=== PATIENT | male | born 1980 | race Caucasian/White ===

== ENCOUNTER → 2019-11-04 | Outpatient (CLI) | payer BC ==
--- NOTE | 2019-11-04 09:33 | Diagnostic Imaging Report ---
INDICATION: Pain COMPARISON: None available TECHNIQUE: Two radiographs of the thoracic spine dated 11/04/2019. FINDINGS: A metallic BB is noted just to the right of the spine overlying the right upper lung. Alignment of the thoracic spine is grossly unremarkable, though the cervicothoracic junction is not well seen secondary to overlying structures. Within the limits of the examination, vertebral body heights are well-maintained. No severe disc space height loss. No acute fracture. No large volume pleural effusion. IMPRESSION: No acute osseous abnormality within the limits of the examination. Metallic BB overlying the right upper lung, of uncertain chronicity. Recommend clinical correlation. Dictated by: Dictated on workstation # [id number]
== END ==
LOC: RAD FS 09:14
PROVIDERS: ATTEND Nurse Practitioner
DX: M54.6 Pain in thoracic spine (principal); Z18.10 Retained metal fragments, unspecified
CPT/HCPCS: 72070

== ENCOUNTER 2020-01-30 07:32 | Emergency (ER) | payer BC ==
[~2020-01-30] VITALS: Ht 185 cm; Wt 88.0 kg
--- NOTE | 2020-01-30 07:59 | ED Upper Extremity ---
General Chief Complaint: Skin/Wound Problems Stated Complaint: LT HAND INFECTION Nursing Triage Note: PT REPORTS HE HIT HIS HAND ABOUT A MONTH AGO AND CUT IT. HE HAD SOME SWELLING AT THE TIME BUT IT WENT AWAY. HE HIT IT AGAIN THIS WEEEKEND AND NOW HAS REDNESS, SWELLING, AND WARMTH TO THE LEFT HAND. HE REPORTS A HX OF STAPH INFECTION. Nursing Sepsis Screen: No Definite Risk Source: patient Exam Limitations: no limitations History of Present Illness Date Seen by Provider: Jan 30, 2020 Time Seen by Provider: 07:45 Initial Comments The patient is a 39-year-old male presents for evaluation of pain, redness, and swelling to the left hand. He states that he injured himself with a saw about a month ago causing a small laceration to the left third proximal knuckle on the dorsal aspect. He says he had some swelling at that time but that it went away over the next few days. This weekend he was helping a friend and had some trauma to the area again. He went to sleep Thursday night with some discomfort and redness and woke up Thursday morning with a significantly swollen left hand, worsening redness, and worsening pain. He states that he has a history of staph infection. He denies fevers or chills, dizziness, nausea or vomiting, or any other complaints at this time. He is alert and oriented 4, calm, and appears to be in no distress. Onset: other (1 month ago, aggravated 2 days ago) Severity: moderate Pain/Injury Location: bilateral shoulder, bilateral arm, bilateral elbow, bilateral forearm; left wrist, left hand Method of Injury: direct blow, incised Modifying Factors: Improves With Movement (makes it worse) Allergies and Home Medications Allergies Coded Allergies: fentanyl (Verified Allergy, Severe, 01/30/20) Patient Home Medication List Home Medication List Reviewed: Yes Review of Systems Constitutional: no symptoms reported EENTM: no symptoms reported Respiratory: no symptoms reported Cardiovascular: no symptoms reported Gastrointestinal: no symptoms reported Genitourinary: no symptoms reported Musculoskeletal: no symptoms reported Skin: other (left hand redness) Past Sblyqbu-Gtgvuo-Dczqvs Hx Patient Social History Alcohol Use: Regular Use Recreational Drug Use: No Smoking Status: Current Everyday Smoker Type Used: Cigarettes 2nd Hand Smoke Exposure: Yes Recent Foreign Travel: No Contact w/Someone Who Travel: No Recent Infectious Disease Expo: No Recent Hopitalizations: No Physical Abuse: No Sexual Abuse: No Mistreated: No Fear: No Seasonal Allergies Seasonal Allergies: Yes Past Medical History Surgeries: Yes (left femur sx and rt heel sx.) Orthopedic Respiratory: Yes Asthma Cardiac: No Neurological: No Genitourinary: No Gastrointestinal: No Musculoskeletal: No Endocrine: No HEENT: No Cancer: No Psychosocial: No Blood Disorders: No Physical Exam Vital Signs Vital Signs - First Documented 01/30/20 07:46 Temp 36.4 Pulse 81 Resp 18 B/P (MAP) 178/110 (132) Pulse Ox 99 O2 Delivery Room Air Capillary Refill : Less Than 3 Seconds Height, Weight, BMI Height: '" Weight: lbs. oz. kg; 25.00 BMI Method: General Appearance: WD/WN, no apparent distress HEENT: PERRL/EOMI, TMs normal, pharynx normal Neck: non-tender, full range of motion Cardiovascular: regular rate, rhythm, no edema, no JVD Shoulder: normal inspection, non-tender, no evidence of injury Elbow/Forearm: normal inspection, non-tender, no evidence of injury Hand: Right (normal exam), Left (Left hand with moderate swelling, soft compartments, healed wound over dorsal left third MCP joint, no fluctuance, no drainage, FROM of all fingers/hand/wrist, CMS intact distally, ), infection, limited ROM (slightly limited flexion/extension of left wrist), soft tissue tenderness, swelling Neurologic/Tendon: normal sensation, normal motor functions, normal tendon functions, responds to pain, no evidence tendon injury Neurologic/Psychiatric: geriatric physical therapist II-XII nml as tested, no motor/sensory deficits, alert, normal mood/affect, oriented x 3 Skin: normal color, warm/dry Progress/Results/Core Measures Results/Orders My Orders Orders - GEMA LEAHY DO Dipht,Pertuss(Acell),Tet Adult (Boostrix (01/30/20 08:15) Clindamycin Capsule (Cleocin Capsule) (01/30/20 08:15) Hand 3 View Left (01/30/20 08:02) Medications Given in ED Current Medications Medications Dose Ordered Sig/Joey Route Start Time Stop Time Status Last Admin Dose Admin Clindamycin HCl 450 mg ONCE ONCE PO 01/30/20 08:15 01/30/20 08:16 DC 01/30/20 08:12 450 MG Diphtheria/ Tetanus/Acell Pertussis 0.5 ml ONCE ONCE IM 01/30/20 08:15 01/30/20 08:16 DC 01/30/20 08:13 0.5 ML Vital Signs/I&O 01/30/20 07:46 Temp 36.4 Pulse 81 Resp 18 B/P (MAP) 178/110 (132) Pulse Ox 99 O2 Delivery Room Air Blood Pressure Mean: 132 Progress Progress Note : Progress Note @0815 - Case d/w nurse for Dr. Benavides ([facility] at [address] [place] [address]) who will contact him and call back. @0904 - Dr. Benavides states to have the patient drive directly to his office to be evaluated today at [address] Departure Impression Primary Impression: Infection of left hand Disposition: 01 HOME, SELF-CARE Condition: Stable Departure-Patient Inst. Decision time for Depature: 09:29 Referrals: DANIELA BENAVIDES DO SELF,STEPHANIE FRANCIS (PCP/Family) Primary Care Physician Patient Instructions: MRSA (DC) Add. Discharge Instructions: Go directly to Dr. Grissom's office at [address] [place] Address [facility], [address] [address] [address] Benavides will be expecting you. GEMA LEAHY DO Jan 30, 2020 07:58
[2020-01-30] MEDS ORDERED: TETANUS,DIPTH,PERTUSS P/F (BOOSTRIX) 0.5 ML VIAL IM ONE (08:15)
[2020-01-30] MEDS ORDERED: CLINDAMYCIN 150 MG (CLEOCIN) CAP PO ONE (08:15)
--- NOTE | 2020-01-30 08:19 | Diagnostic Imaging Report ---
INDICATION: Pain and swelling status post laceration injury. COMPARISON: None. FINDINGS: 3 views of the left hand were obtained and show no fractures, dislocations, or other acute bony abnormalities. Joint spaces are well maintained throughout. The soft tissues appear unremarkable. No radiopaque foreign bodies are identified. IMPRESSION: Unremarkable radiographic exam of the left hand. Dictated by: Dictated on workstation # [id number]
[2020-01-30 09:50] VITALS: BP 132/72
--- OUTSIDE RECORDS SUMMARY | 2020-02-01 14:36 | XMS REPORT | Continuity of Care Document ---
Author Organization Unknown Address Unknown Phone Unavailable Allergies Active Description Code Type Severity Reaction Onset Reported/Identified Relationship to Patient Clinical Status Yes fentanyl [id number] Drug Allergy Severe N/A 01/30/2020 Medications There is no data. Problems Date Dx Coded Attending Type Code Diagnosis Diagnosed By 11/08/2019 MARIAM NERI APRN Ot M54.6 PAIN IN THORACIC SPINE 11/08/2019 MARIAM NERI APRN Ot Z18.10 RETAINED METAL FRAGMENTS, UNSPECIFIED 01/30/2020 MARIAM NERI APRN Ot M54.6 PAIN IN THORACIC SPINE 01/30/2020 MARIAM NERI APRN Ot Z18.10 RETAINED METAL FRAGMENTS, UNSPECIFIED Procedures There is no data. Results There is no data. Encounters ACCT No. Visit Date/Time Discharge Status Pt. Type Provider Facility Loc./Unit Complaint [id number] 01/30/2020 07:00:00 [facility] [id number] 11/04/2019 09:14:00 019 23:59:59 CLS Outpatient MARIAM NERI APRN [facility] RAD FS M54.6 [id number] 01/30/2020 07:33:[address] Emergency ARMOND RIBEIRO DO [facility] ER FS LT HAND INFECTION
== END 2020-01-30 09:50 | disposition home or self-care (01) ==
LOC: EDUNIT# 07:32 → ER FS 07:33
DX: L08.9 Local infection of the skin and subcutaneous tissue, unspecified (principal); F17.210 Nicotine dependence, cigarettes, uncomplicated; Z88.5 Allergy status to narcotic agent; Z87.828 Personal history of other (healed) physical injury and trauma
CPT/HCPCS: 73130; 90715

== ENCOUNTER → 2020-04-23 | Outpatient (CLI) | payer OTHER, BC ==
--- NOTE | 2020-04-23 09:43 | Diagnostic Imaging Report ---
INDICATION: Right shoulder pain AP and oblique views of the right shoulder are obtained. No fracture or acute bony abnormality is seen. AC joint and glenohumeral joint appear grossly unremarkable. IMPRESSION: Negative right shoulder. Dictated by: Dictated on workstation # [id number]
== END ==
LOC: RAD FS 09:26
PROVIDERS: ATTEND Family Medicine
DX: M25.111 Fistula, right shoulder (principal)
CPT/HCPCS: 73030

== ENCOUNTER 2021-11-08 07:55 | Emergency (ER) | payer BC, OTHER ==
[~2021-11-08] VITALS: Ht 185.5 cm; Wt 81.6 kg
--- OUTSIDE RECORDS SUMMARY | 2021-11-08 08:01 | XMS REPORT | Clinical Summary ---
Author Author [facility] Organization [facility] Address Unknown Phone Unavailable Care Team Providers Care Police Chief Deputy Name Role Phone PCP Unavailable Allergies Comments Active Allergy Reactions Severity Noted Date Fentanyl Bradycardia 07/04/2019 Medications End Date Status Medication Sig Dispensed Refills Start Date Active fluticasone Inhale 1 puff 0 propion-salmeterol 2 (two) times (ADVAIR) 100-50 mcg/dose a day. DISKUS Active Problems Not on file Social History Date Tobacco Use Types Packs/Day Years Used Current Some Day Smoker Smokeless Tobacco: Chew Current User Comments Alcohol Use Standard Drinks/Week Yes 0 (1 standard drink = 0.6 o z pure alcohol) Sex Assigned at Date Recorded Not on file Last Filed Vital Signs Reading Time Taken Comments Vital Sign 146/104 07/04/2019 5:36 PM CDT Blood Pressure 95 07/04/2019 5:36 PM CDT Pulse 37.1 C (98.7 F) 07/04/2019 1:21 PM CDT Temperature 23 07/04/2019 5:36 PM CDT Respiratory Rate 94% 07/04/2019 5:36 PM CDT Oxygen Saturation - - Inhaled Oxygen Concentration 83.9 kg (185 lb) 07/04/2019 1:21 PM CDT Weight - - Height - - Body Mass Index Plan of Treatment Health Maintenance Due Date Last Done Comments Td/Tdap# 1980 Tobacco Cessation 1980 Counseling # COVID-19 Vaccine (1) 02/12/1985 Pneumococcal Vaccine: 02/12/1986 Pediatrics (0 to 5 Years) and At-Risk Patients (6 to 64 Years) (1 of 2 - PPSV23) Influenza Vaccine (#1) 2021 Results Not on filefrom Last 3 Months Insurance Type Payer Benefit Subscriber ID Effective Phone Address Plan / Dates Group [facility] OUT OF [id number] 2019-[id number] [place] [id number] [id number] [place] (Home) [place], [place] [address] [place] Serna Personal/F Self [id number] [place] (Home) [place], [place] [address] Advance Directives For more information, please contact: [phone] Patient Administrative Hearing Officer Explanation Type Date Recorded Health Care Directive
[2021-11-08] MEDS ORDERED: NS IV 1000 ML 1,000 ML IV STA (08:06)
[2021-11-08] MEDS ORDERED: LIDOCAINE 1% INJ 20 ML 20 ML VIAL INJ STA (08:06)
[2021-11-08] MEDS ORDERED: LORazepam INJ 2 MG/ML (ATIVAN) VIAL IVP STA (08:08)
--- NOTE | 2021-11-08 08:12 | ED General ---
General Source of Information: Patient, EMS, Old Records History of Present Illness Date Seen by Provider: Nov 08, 2021 Time Seen by Provider: 07:55 Initial Comments 41-year-old male presenting with EMS from a local hotel. He was in the lobby and reportedly had a glassy eye look and then fell and started seizing. 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 He is slow to answer questions and has a dazed look. He is tachycardic and hypertensive currently. He can not tell me when he last drank alcohol. He denies drug use. He does have complaint of pain to right ear where he has laceration. He had tetanus booster January 2020 when he was seen for hand injury in this ED. He has a laceration to posterior left tongue where he bit it. Location Injury Occurred: [facility] Associated Systoms: No Chest Pain, No Cough, No Diaphoresis, No Fever/Chills, No Headaches, No Loss of Appetite, No Malaise, No Nausea/Vomiting; Seizure; No Shortness of Air, No Syncope, No Weakness Allergies and Home Medications Allergies Coded Allergies: fentanyl (Verified Allergy, Severe, 01/30/20) Patient Home Medication List Home Medication List Reviewed: Yes Review of Systems Review of Systems Constitutional: No chills, No fever EENTM: ear pain (right top of outer ear where he has laceration), mouth pain (left posterior tongue pain where he has small bite/laceration) Respiratory: No cough Cardiovascular: No chest pain Gastrointestinal: No nausea, No vomiting Genitourinary: No dysuria Musculoskeletal: no symptoms reported Skin: see HPI, other (laceration to posterior right top of the ear) Psychiatric/Neurological: Denies Headache, Denies Numbness, Denies Paresthesia; Seizure Past Xcfbifo-Gkhwtx-Wadsgn Hx Patient Social History Tobacco Use?: Yes (cigarettes and chew) Smokeless Tobacco Frequency: Current Everyday User Alcohol Use?: Yes Alcohol type: Beer Immunizations Up To Date Tetanus Booster (TDap): Less than 5yrs (April 2020) Seasonal Allergies Seasonal Allergies: Yes Past Medical History Surgeries: Yes (left femur sx and rt heel sx.) Orthopedic Respiratory: Yes Asthma Cardiac: No Neurological: No Genitourinary: No Gastrointestinal: No Musculoskeletal: No Endocrine: No HEENT: No Cancer: No Psychosocial: No Blood Disorders: No Physical Exam Vital Signs Vital Signs - First Documented 11/08/21 07:58 Temp 36.3 Pulse 128 Resp 17 B/P (MAP) 147/102 (117) Pulse Ox 96 O2 Delivery Room Air Capillary Refill : Height, Weight, BMI Height: '" Weight: lbs. oz. kg; 25.00 BMI Method: General Appearance: Other (dazed and slow to answer questions) Eyes: Bilateral Eye PERRL, Bilateral Eye EOMI HEENT: TMs Normal, Moist Mucous Membranes; No Photophobia; Other (no hemotympanum, no ambriz sign, no raccoon sign, no CSF otorrhea/rhinorrhea, small bite/cut to left posterior tongue, poor dentition) Neck: Non Tender; No Tender Lateral, No Tender Midline; Other (wearing collar from EMS) Respiratory: Chest Non Tender, Lungs Clear, Normal Breath Sounds, No Accessory Muscle Use, No Respiratory Distress Cardiovascular: No Murmur, Normal Peripheral Pulses, Tachycardia Gastrointestinal: Normal Bowel Sounds, No Pulsatile Mass, Non Tender, Soft Rectal: Deferred Extremity: Normal Capillary Refill, Normal Inspection, No Pedal Edema Neurologic/Psychiatric: Alert; No Oriented x3 (orient to self, place, age, states year is 2011 or 2013); mattress weaver II-XII Norm as Tested, Other (asking repetitive questions) Skin: Normal Color, Warm/Dry, Other (stellate laceration to right pinna posterior upper part of ear) Procedures/Interventions Wound Location: Ears (posterior superior aspect of Right Pinna) Wound Length (cm): 2.7 Wound's Depth, Shape: stellate, contused tissue, sub Q Wound Explored: clean Anesthesia: 1% Lidocaine Volume Anesthetic (ccs): 2 Suture: Ethlion Suture Size: 5-0 Number of Sutures: 5 Layer Closure?: 1 Sterile Dressing Applied?: Yes Progress After obtaining verbal consent from the patient the wound was anesthetized with 1% plain lidocaine. A total of 2 mL of plain lidocaine were infiltrated into the wound. Then using chlorhexidine scrub soap and sterile water the wound was scrubbed to clean it. There were no foreign body seen. There was a laceration to the posterior superior aspect of the right pinna as well as the interior cartilage. Using 5-0 Ethilon a total of 5 simple interrupted stitches were used to approximate the wound edges. As there was a stellate and irregular laceration moving edges were just loosely approximated to allow it to heal without making the wound too tight. The wound edges appear well approximated. Patient tolerated procedure well without any immediate complication. Counseled on follow-up and return precautions. Advised to have the stitches out in 7 to 10 days. Progress/Results/Core Measures Suspected Sepsis SIRS Temperature: Pulse: Respiratory Rate: Laboratory Tests 11/08/21 08:05: White Blood Count 11.3H Blood Pressure / Mean: Laboratory Tests 11/08/21 08:05: Creatinine 0.81, INR Comment 1.1, Platelet Count 142, Total Bilirubin 2.2H Results/Orders Lab Results Laboratory Tests Test 11/08/21 08:05 11/08/21 09:20 Range/Units White Blood Count 11.3 H 4.3-11.0 10^3/uL Red Blood Count 4.61 4.30-5.52 10^6/uL Hemoglobin 15.1 13.3-17.7 g/dL Hematocrit 41 40-54 % Mean Corpuscular Volume 88 80-99 fL Mean Corpuscular Hemoglobin 33 25-34 pg Mean Corpuscular Hemoglobin Concent 37 H 32-36 g/dL Red Cell Distribution Width 11.5 10.0-14.5 % Platelet Count 142 130-400 10^3/uL Mean Platelet Volume 10.3 9.0-12.2 fL Immature Granulocyte % (Auto) 0 % Neutrophils (%) (Auto) 80 H 42-75 % Lymphocytes (%) (Auto) 14 12-44 % Monocytes (%) (Auto) 5 0-12 % Eosinophils (%) (Auto) 0 0-10 % Basophils (%) (Auto) 0 0-10 % Neutrophils # (Auto) 9.1 H 1.8-7.8 X 10^3 Lymphocytes # (Auto) 1.5 1.0-4.0 X 10^3 Monocytes # (Auto) 0.6 0.0-1.0 X 10^3 Eosinophils # (Auto) 0.0 0.0-0.3 10^3/uL Basophils # (Auto) 0.0 0.0-0.1 10^3/uL Immature Granulocyte # (Auto) 0.0 0.0-0.1 10^3/uL Prothrombin Time 14.4 12.2-14.7 SEC INR Comment 1.1 0.8-1.4 Activated Partial Thromboplast Time 28 24-35 SEC Sodium Level 127 L 135-145 MMOL/L Potassium Level 3.3 L 3.6-5.0 MMOL/L Chloride Level 87 L 98-107 MMOL/L Carbon Dioxide Level 23 21-32 MMOL/L Anion Gap 17 H 5-14 MMOL/L Blood Urea Nitrogen 7 7-18 MG/DL Creatinine 0.81 0.60-1.30 MG/DL Estimat Glomerular Filtration Rate 105 BUN/Creatinine Ratio 9 Glucose Level 136 H 70-105 MG/DL Calcium Level 8.5 8.5-10.1 MG/DL Corrected Calcium 8.7 8.5-10.1 MG/DL Total Bilirubin 2.2 H 0.1-1.0 MG/DL Aspartate Amino Transf (AST/SGOT) 594 H 5-34 U/L Alanine Aminotransferase (ALT/SGPT) 293 H 0-55 U/L Alkaline Phosphatase 204 H 40-136 U/L Total Protein 6.3 L 6.4-8.2 GM/DL Albumin 3.7 3.2-4.5 GM/DL Salicylates Level < 0.3 L 5.0-20.0 MG/DL Acetaminophen Level < 10 L 10-30 UG/ML Serum Alcohol < 10 <10 MG/DL Urine Color OTHER H Urine Clarity CLEAR Urine pH 7.0 5-9 Urine Specific [place] 1.010 L 1.016-1.022 Urine Protein NEGATIVE NEGATIVE Urine Glucose (UA) NEGATIVE NEGATIVE Urine Ketones NEGATIVE NEGATIVE Urine Nitrite NEGATIVE NEGATIVE Urine Bilirubin NEGATIVE NEGATIVE Urine Urobilinogen 0.2 < = 1.0 MG/DL Urine Leukocyte Esterase NEGATIVE NEGATIVE Urine RBC (Auto) TRACE-I H NEGATIVE Urine RBC NONE /HPF Urine WBC RARE /HPF Urine Squamous Epithelial Cells RARE /HPF Urine Renal Epithelial Cells RARE /HPF Urine Crystals NONE /LPF Urine Bacteria NEGATIVE /HPF Urine Casts PRESENT /LPF Urine Hyaline Casts RARE /LPF Urine Mucus SMALL H /LPF Urine Culture Indicated NO Urine Opiates Screen NEGATIVE NEGATIVE Urine Oxycodone Screen NEGATIVE NEGATIVE Urine Methadone Screen NEGATIVE NEGATIVE Urine Propoxyphene Screen NEGATIVE NEGATIVE Urine Barbiturates Screen NEGATIVE NEGATIVE Ur Tricyclic Antidepressants Screen NEGATIVE NEGATIVE Urine Phencyclidine Screen NEGATIVE NEGATIVE Urine Amphetamines Screen NEGATIVE NEGATIVE Urine Methamphetamines Screen NEGATIVE NEGATIVE Urine Benzodiazepines Screen NEGATIVE NEGATIVE Urine Cocaine Screen NEGATIVE NEGATIVE Urine Cannabinoids Screen NEGATIVE NEGATIVE My Orders Orders - ENYART,DA E MD Ua Culture If Indicated (11/08/21 08:06) Cbc With Automated Diff (11/08/21 08:06) Comprehensive Metabolic Panel (11/08/21 08:06) Alcohol (11/08/21 08:06) Drug Screen Stat (Urine) (11/08/21 08:06) Acetaminophen (11/08/21 08:06) Salicylate (11/08/21 08:06) Ekg Tracing (11/08/21 08:06) Ed Iv/Invasive Line Start (11/08/21 08:06) Monitor-Rhythm Ecg Trace Only (11/08/21 08:06) Ns Iv 1000 Ml (Sodium Chloride 0.9%) (11/08/21 08:15) Lidocaine 1% Inj 20 Ml (Xylocaine 1% Inj (11/08/21 08:06) Suture Set At Bedside (11/08/21 08:06) Ct Head/Cervical Spine Wo (11/08/21 08:06) Ns Iv 1000 Ml (Sodium Chloride 0.9%) (11/08/21 08:06) Lorazepam Injection (Ativan Injection) (11/08/21 08:08) Protime With Inr (11/08/21 09:12) Partial Thromboplastin Time (11/08/21 09:12) Vital Signs/I&O 11/08/21 07:58 Temp 36.3 Pulse 128 Resp 17 B/P (MAP) 147/102 (117) Pulse Ox 96 O2 Delivery Room Air Capillary Refill : Progress Note #1: Progress Note Obtain basic labs and urinalysis. But this tachycardia obtain electrocardiogram and placed on cardiac telemetry monitoring. Give IV fluids for hydration, 1 mg Ativan for tachycardia and reported history of alcohol as the source of his seizures as well as to see if it might help prevent recurrent seizures here in the ED. From review of his old electronic record he had an update of his tetanus booster and April 2020. Will use lidocaine and a 5-0 Ethilon to loosely approximate the wound edges of his stellate laceration on the posterior and superior aspect of his right pinna. Obtain CT scan of his head and cervical spine since he had a seizure and fell hitting his head. Progress Note #2: Time: 08:49 Progress Note CBC with white blood cell count at 11.3. His chemistry panel demonstrates hyponatremia at 127 and elevated liver enzymes with T bili 2.2, AST 594, ALT 293, Alk Phos 204. His alcohol, acetaminophen, and salicylate levels are all 0. He has no prior labs in the system for comparison. 2nd Liter of NS infusing and he did provide a urine specimen that was dark in color and appeared concentrated Progress Note #3: Time: 09:10 Progress Note Spoke with Dr. Stark with radiology about the CT findings of intraparenchymal hemorrhage and subdural hematoma. No cervical spine fracture. Updated pt about findings and need to transfer to a trauma facility for neurosurgery and monitoring. I asked if he had a preference in terms of locations to start calling and he stated that he did have a vehicle so it did not matter to him. Removed Cervical Collar and pt had full range of motion of neck without pain or neuro deficit. 9:24 AM I spoke with Dr. Reeves the trauma surgeon from [facility] and he accepted patient for transfer. I then spoke with Dr. Franz the ED provider so that he was also aware. Images were clouded to [facility]. Fax face sheet and activate EMS to come for emergent ACLS transfer to [facility]. Pt continues to deny taking any blood thinners. Progress Note #4: Time: 09:43 Progress Note UA did not show any acute significant abnormality or infection. UDS negative for illicit substances. ECG Initial ECG Impression Date: Nov 08, 2021 Initial ECG Impression Time: 08:43 Initial ECG Rate: 118 Initial ECG Rhythm: S.Tach Initial ECG Comparisson: No Previous ECG Available Comment Sinus tachycardia with a heart rate of 118 bpm. NV interval [address] elevation. Prolonged QT interval with a QTC of 360 ms and a QTc interval of 505 ms. There is no prior tracing available for comparison. Diagnostic Imaging Diagonstic Imaging: CT Plain Films/CT/US/NM/MRI: c-spine, head Comments [facility] [place], [place] NAME: YANET VELASQUEZ Kendy III MED REC#: [id number] PT STATUS: REG ER : 1980 PHYSICIAN: DA CARRASCO MD ADMIT DATE: 11/08/21/ER FS Signed Date of Exam:11/08/21 CT HEAD/CERVICAL SPINE WO EXAMINATION: CT head and CT cervical spine without contrast. TECHNIQUE: Multiple contiguous axial images were obtained through the brain and cervical spine without the use of intravenous contrast. Sagittal and coronal reformations through the cervical spine were then performed. All CT scans use one or more of the following dose optimizing techniques: automated exposure control, MA and/or KvP adjustment based on patient size and exam type or iterative reconstruction. HISTORY: seizure, hit head, right ear lac, fall COMPARISON: None available. FINDINGS: HEAD: The ventricles and sulci are normal. No abnormal attenuation of brain parenchyma is present. There is a 0.5 x 0.5 cm focus of hyperattenuation seen within the right occipital lobe. There is 0.4 cm focal hyperdense thickening seen along the left tentorium (series 9 image 56). No mass effect or midline shift. No hyperdense vessel. The calvarium is intact. The mastoid air cells are clear. Mucosal thickening of the paranasal sinuses. The orbits are normal. C-SPINE: Vertebral body height and alignment are preserved. No acute fracture, dislocation, or destructive osseous process. No significant facet hypertrophy. No significant central canal or neuroforaminal stenosis. The paraspinous soft tissues are normal. The visualized thyroid gland is normal. The visualized lung apices are normal. IMPRESSION: 1. Small focus of hyperattenuation seen within the right occipital lobe measuring 0.5 cm concerning for intraparenchymal hemorrhage. 2. Small focus of hyperdense thickening seen along the left tentorium would also raise concern for small focus of subdural hematoma given history of trauma. 3. No cervical spine fracture. CRITICAL FINDING Findings communicated to Dr. Carrasco by Dr. Ben Stark at 9:10 AM on 11/08/2021. Dictated by: Dictated on workstation # [id number] Dict: 11/08/21901 Trans: 11/08/21913 ALIDA [id number] Interpreted by: GEMA STARK DO Electronically signed by: GEMA STARK DO 11/08/21913 Reviewed: Reviewed by Me Departure Impression Primary Impression: Subdural hemorrhage Additional Impressions: Seizure-like activity Laceration of right pinna Qualified Codes: S01.311A - Laceration without foreign body of right ear, initial encounter Sinus tachycardia Fall from standing Qualified Codes: W19.XXXA - Unspecified fall, initial encounter Hyponatremia Hepatitis Elevated liver function tests Intraparenchymal hematoma of brain due to trauma Qualified Codes: S06.341A - Traumatic hemorrhage of right cerebrum with loss of consciousness of 30 minutes or less, initial encounter Disposition: 02 XFER SHT-TRM HOSP Condition: Stable Transfer Transfer Reason: Exceeds level of care (Needs Neurosurgery/Trauma) Time Spoke to Accepting Phy: 09:24 Transfer Progress Notes 09 d/w Dr. Reeves, Trauma Surgeon delinquency prevention officer for [facility]. He accepted pt for transfer. I then spoke with Dr. Franz the ED physician so that he was also aware of the patient. We will continue with IV fluids for the hyponatremia and tachycardia while in route to [facility]. for Trauma and Neurosurgery eval/monitoring. Transfer Facility: [facility] Method of Transfer: EMS Departure-Patient Inst. Referrals: SELF,STEPHANIE FRANCIS (PCP/Family) Primary Care Physician DA CARRASCO MD Nov 08, 2021 08:12
[2021-11-08] MEDS ORDERED: NS IV 1000 ML 1,000 ML IV SCH (08:15)
[2021-11-08 08:23] LABS: HEMATOCRIT 41 % (40-54); HEMOGLOBIN 15.1 g/dL (13.3-17.7); MEAN CORPUSCULAR HEMOGLOBIN 33 pg (25-34); MEAN CORPUSCULAR HGB CONC 37 g/dL (32-36); MEAN CORPUSCULAR VOLUME 88 fL (80-99); WHITE BLOOD COUNT 11.3 10^3/uL (4.3-11.0)
[2021-11-08 08:24] LABS: BASOPHILS % (AUTO) 0 % (0-10); EOSINOPHILS % (AUTO) 0 % (0-10); LYMPHOCYTES % (AUTO) 14 % (12-44); MEAN PLATELET VOLUME 10.3 fL (9.0-12.2); MONOCYTES % (AUTO) 5 % (0-12); NEUTROPHILS # (AUTO) 9.1 X 10^3 (1.8-7.8); NEUTROPHILS % (AUTO) 80 % (42-75); PLATELET COUNT 142 10^3/uL (130-400)
[2021-11-08 08:25] LABS: LYMPHOCYTES # (AUTO) 1.5 X 10^3 (1.0-4.0); MONOCYTES # (AUTO) 0.6 X 10^3 (0.0-1.0)
[2021-11-08 08:36] LABS: CARBON DIOXIDE 23 MMOL/L (21-32); CHLORIDE 87 MMOL/L (98-107); POTASSIUM 3.3 MMOL/L (3.6-5.0); SODIUM 127 MMOL/L (135-145)
[2021-11-08 08:37] LABS: ALANINE AMINOTRANSFERASE 293 U/L (0-55); ALBUMIN 3.7 GM/DL (3.2-4.5); ALKALINE PHOSPHATASE 204 U/L (40-136); BILIRUBIN,TOTAL 2.2 MG/DL (0.1-1.0); BUN/CREATININE RATIO 9; CALCIUM 8.5 MG/DL (8.5-10.1); CREATININE SERUM 0.81 MG/DL (0.60-1.30); GFR ESTIMATED 105; GLUCOSE 136 MG/DL (70-105); SALICYLATE < 0.3 MG/DL (5.0-20.0); TOTAL PROTEIN 6.3 GM/DL (6.4-8.2)
[2021-11-08 08:38] LABS: ACETAMINOPHEN < 10 UG/ML (10-30)
--- NOTE | 2021-11-08 09:14 | Diagnostic Imaging Report ---
EXAMINATION: CT head and CT cervical spine without contrast. TECHNIQUE: Multiple contiguous axial images were obtained through the brain and cervical spine without the use of intravenous contrast. Sagittal and coronal reformations through the cervical spine were then performed. All CT scans use one or more of the following dose optimizing techniques: automated exposure control, MA and/or KvP adjustment based on patient size and exam type or iterative reconstruction. HISTORY: seizure, hit head, right ear lac, fall COMPARISON: None available. FINDINGS: HEAD: The ventricles and sulci are normal. No abnormal attenuation of brain parenchyma is present. There is a 0.5 x 0.5 cm focus of hyperattenuation seen within the right occipital lobe. There is 0.4 cm focal hyperdense thickening seen along the left tentorium (series 9 image 56). No mass effect or midline shift. No hyperdense vessel. The calvarium is intact. The mastoid air cells are clear. Mucosal thickening of the paranasal sinuses. The orbits are normal. C-SPINE: Vertebral body height and alignment are preserved. No acute fracture, dislocation, or destructive osseous process. No significant facet hypertrophy. No significant central canal or neuroforaminal stenosis. The paraspinous soft tissues are normal. The visualized thyroid gland is normal. The visualized lung apices are normal. IMPRESSION: 1. Small focus of hyperattenuation seen within the right occipital lobe measuring 0.5 cm concerning for intraparenchymal hemorrhage. 2. Small focus of hyperdense thickening seen along the left tentorium would also raise concern for small focus of subdural hematoma given history of trauma. 3. No cervical spine fracture. CRITICAL FINDING Findings communicated to Dr. Gomez by Dr. Ben Davis at 9:10 AM on 11/08/2021. Dictated by: Dictated on workstation # [id number]
[2021-11-08 09:30] LABS: BILIRUBIN,URINE NEGATIVE (NEGATIVE); CLARITY,URINE CLEAR; COLOR,URINE OTHER; GLUCOSE, URINE (UA) NEGATIVE (NEGATIVE); KETONES,URINE NEGATIVE (NEGATIVE); LEUKOCYTE ESTERASE ,URINE NEGATIVE (NEGATIVE); NITRITE,URINE NEGATIVE (NEGATIVE); PROTEIN,URINE NEGATIVE (NEGATIVE)
[2021-11-08 09:30] LABS: INR 1.1 (0.8-1.4); PROTHROMBIN TIME PATIENT 14.4 SEC (12.2-14.7)
[2021-11-08 09:39] LABS: AMPHETAMINE SCREEN, URINE NEGATIVE (NEGATIVE); BARBITURATE SCREEN URINE NEGATIVE (NEGATIVE); BENZODIAZEPINES SCREEN URINE NEGATIVE (NEGATIVE); CANNABINOID SCREEN, URINE NEGATIVE (NEGATIVE); COCAINE SCREEN URINE NEGATIVE (NEGATIVE); METHADONE STAT NEGATIVE (NEGATIVE); METHAMPHETAMINE SCREEN URINE S NEGATIVE (NEGATIVE); OPIATE SCREEN URINE NEGATIVE (NEGATIVE); OXYCODONE STAT NEGATIVE (NEGATIVE); PROPOXYPHENE STAT NEGATIVE (NEGATIVE); TRICYCLIC ANTIDEPRESSANTS SCRE NEGATIVE (NEGATIVE)
[2021-11-08 09:41] LABS: BACTERIA,URINE NEGATIVE /HPF; HYALINE CASTS, URINE RARE /LPF; RENAL EPITHELIAL CELLS,URINE RARE /HPF; SQUAMOUS EPITHELIAL CELL,UR RARE /HPF; WBC,URINE RARE /HPF
[2021-11-08 09:49] VITALS: BP 158/109
== END 2021-11-08 09:52 | disposition short-term general hospital (02) ==
LOC: EDUNIT# 07:55 → ER FS 07:57
DX: S01.311A Laceration without foreign body of right ear, initial encounter (principal); S06.2X0A Diffuse traumatic brain injury without loss of consciousness, initial encounter; R29.818 Other symptoms and signs involving the nervous system; R00.0 Tachycardia, unspecified; E87.1 Hypo-osmolality and hyponatremia; K75.9 Inflammatory liver disease, unspecified; R79.89 Other specified abnormal findings of blood chemistry; J45.909 Unspecified asthma, uncomplicated; F17.210 Nicotine dependence, cigarettes, uncomplicated; W18.30XA Fall on same level, unspecified, initial encounter
CPT/HCPCS: 12011; 36415; 70450; 72125; 80053; 80306; 81000; 85025; 85610; 85730; 93005; 93041; 99284; G0480 ×3; 80320; 80329